=== PATIENT | female | born 1980 | race Caucasian/White ===

== ENCOUNTER 2016-04-07 17:56 | Emergency (ER) | payer MEDICAID ==
[2016-04-07] MEDS ORDERED: ASPIRIN 81 MG CHEW TAB ONE (18:07)
[2016-04-07] MEDS ORDERED: ORPHENADRINE 60 MG/2 ML AMP ONE (18:55)
== END 2016-04-07 20:52 | disposition home or self-care (01) ==
LOC: ER 17:56
CPT/HCPCS: 36415; 71010; 80053; 82550; 83735; 84484; 85025; 85379; 85610; 85730; 93005; 96372